=== PATIENT | male | born 1995 | race Two or more races ===

== ENCOUNTER → 2017-07-09 | Outpatient (CLI) | payer MEDICAID ==
--- NOTE | 2017-07-09 17:16 | REP ---
Clinical: Protruding sternal wires. Technique: PA and lateral. Comparison: 12/29/2015. Findings: The patient is again noted to be status post sternotomy and the sternal wires, sternum and overlying soft tissues appear relatively stable as compared to prior examination. No obvious subcutaneous emphysema overlying the sternum area of sternotomy is appreciated. The mediastinum and cardiac silhouette are normal/stable. Lung kunz without focal consolidation, effusion, or pneumothorax. Impression: 1. Stable appearance to the sternotomy, sternum and overlying soft tissues. No evidence for subcutaneous emphysema. 2. No acute cardiopulmonary process. Signed by Grady Chou MD 07/09/2017 05:08 P
== END ==
LOC: M WUC 16:54
PROVIDERS: ATTEND Physician Assistant Medical
DX: T81.89XA Other complications of procedures, not elsewhere classified, initial encounter (principal); Y83.8 Other surgical procedures as the cause of abnormal reaction of the patient, or of later complication, without mention of misadventure at the time of the procedure

== ENCOUNTER 2018-04-08 08:19 | Emergency (ER) | payer MEDICAID ==
[2018-04-08] MEDS: ATENOLOL 25 MG TAB PO ×2 (08:56→11:11)
[2018-04-08] MEDS: ADENOSINE 6MG/2ML INJECTION (J0153) IV (09:10)
[2018-04-08 09:21] LABS: HEMOGLOBIN 19.7 g/dl (13.5-17.5); MEAN CORPUSCULAR HEMOGLOBIN 31.5 pg (27.0-33.0); MEAN CORPUSCULAR VOLUME 92.7 fl (80.0-96.0); PLATELET COUNT, AUTOMATED 275 10^3/uL (150-450); RED BLOOD COUNT 6.26 10^6/uL (4.30-6.10); WHITE BLOOD COUNT 10.4 10^3/uL (4.0-10.0)
[2018-04-08 09:36] LABS: ANION GAP 17 MEQ/L (8-16); BLOOD UREA NITROGEN 30 MG/DL (7-18); CALCIUM LEVEL 9.8 MG/DL (8.5-10.1); CARBON DIOXIDE LEVEL 18 MEQ/L (21-32); CHLORIDE LEVEL 107 MEQ/L (98-107); CREATININE FOR GFR 1.46 MG/DL (0.70-1.30); GLOMERULAR FILTRATION RATE > 60.0 (>60); GLUCOSE, FASTING 111 MG/DL (70-100); POTASSIUM SERUM 4.9 MEQ/L (3.5-5.1); SODIUM LEVEL 142 MEQ/L (136-145)
[2018-04-08 10:14] LABS: MAGNESIUM LEVEL 2.2 MG/DL (1.8-2.4)
[2018-04-08 10:19] LABS: CK-MB VALUE MASS < 1.0 NG/ML (<3.6); CPK CREATINE PHOSPHOKINASE 148 U/L (39-308); MB/CK RELATIVE INDEX 0.67 (< OR =4); TROPONIN I 0.06 NG/ML (< 0.10)
== END 2018-04-08 11:54 | disposition home or self-care (01) ==
LOC: M ED 08:19
DX: I47.1 Supraventricular tachycardia (principal); F84.0 Autistic disorder; Q89.01 Asplenia (congenital); I45.6 Pre-excitation syndrome; Z91.048 Other nonmedicinal substance allergy status; Z79.899 Other long term (current) drug therapy; Z79.82 Long term (current) use of aspirin
CPT/HCPCS: J0153

== ENCOUNTER → 2018-12-15 | Outpatient (REF) | payer MEDICAID ==
[~2018-12-15] MED LIST: ASPI81TA21 PO; ASPI81TA85 PO; ATEN25TA PO; VITA400D PO; VITA400T15 PO
[2018-12-15 12:49] LABS: APPEARANCE, URINE CLEAR (CLEAR); BACTERIA, URINE AUTO NEGATIVE (NEGATIVE); BILIRUBIN, URINE AUTO NEGATIVE (NEGATIVE); BLOOD, URINE BLOOD NEGATIVE (NEGATIVE); COLOR, URINE YELLOW (YELLOW); GLUCOSE, URINE (UA) AUTO NEGATIVE (NEGATIVE); KETONE, URINE AUTO NEGATIVE (NEGATIVE); LEUKOCYTE ESTERASE, URINE AUTO NEGATIVE (NEGATIVE); NITRITE, URINE AUTO NEGATIVE (NEGATIVE); PROTEIN, URINE AUTO NEGATIVE (NEGATIVE); RBC, URINE AUTO 3 /HPF (0-3); SPECIFIC GRAVITY URINE AUTO 1.018 (1.002-1.035); SQUAMOUS EPITHELIAL CELL UR AU 0 /HPF (0-6); UROBILINOGEN, URINE AUTO 0.2 mg/dL (0.0-2.0); WBC, URINE AUTO 0 /HPF (0-3)
== END ==
LOC: M SFHCPLAZ 11:53
PROVIDERS: ATTEND Family Medicine
DX: R82.998 Other abnormal findings in urine (principal)

== ENCOUNTER 2019-01-11 10:46 | Emergency (ER) | payer MEDICAID ==
[~2019-01-11] VITALS: Ht 170.2 cm; Wt 62.5 kg
[2019-01-11] MEDS ORDERED: NS 1,000 ML IV ONE (11:15)
[2019-01-11] MEDS: METOPROLOL 5 MG/5 ML VIAL IV SCH ×3 (11:18→11:47)
--- NOTE | 2019-01-11 11:34 | REP ---
Clinical: Chest pain. Comparison: 07/09/2017. Findings: Cardiomegaly and evidence for prior sternotomy. No focal consolidation. No effusion. No pneumothorax. Impression: No focal consolidation. No effusion. Electronically Signed by Grady Chou MD 01/11/2019 11:26 A
[2019-01-11 11:47] VITALS: BP 104/77
[2019-01-11] MEDS ORDERED: ADENOSINE 6MG/2ML INJECTION (J0153) IV STA ×2 (11:54→12:19)
[2019-01-11 11:56] LABS: BASO # 0.1 10^3/uL (0.0-0.2); BASO % 0.7 % (0.0-1.0); EOS # 0.5 10^3/uL (0.0-0.50); EOS % 3.6 % (0.0-3.0); HEMATOCRIT 60.3 % (42.0-52.0); LYMPH # 2.7 10^3/uL (1.5-6.5); LYMPH % 20.2 % (24.0-44.0); MEAN CORPUSCULAR HEMOGLOBIN 32.6 pg (27.0-33.0); MEAN CORPUSCULAR HGB CONC 33.7 g/dl (32.0-36.5); MEAN CORPUSCULAR VOLUME 96.9 fl (80.0-96.0); MONO % 7.7 % (0.0-5.0); NEUTROPHILS % 67.4 % (36.0-66.0); PLATELET COUNT, AUTOMATED 196 10^3/uL (150-450); RED BLOOD COUNT 6.22 10^6/uL (4.30-6.10); WHITE BLOOD COUNT 13.3 10^3/uL (4.0-10.0)
[2019-01-11 12:01] LABS: HEMOGLOBIN 20.3 g/dl (13.5-17.5)
[2019-01-11 12:27] LABS: BLOOD UREA NITROGEN 15 MG/DL (7-18); CALCIUM LEVEL 9.4 MG/DL (8.5-10.1); CARBON DIOXIDE LEVEL 15 MEQ/L (21-32); CHLORIDE LEVEL 112 MEQ/L (98-107); CREATININE FOR GFR 1.03 MG/DL (0.70-1.30); FREE T4 1.17 NG/DL (0.76-1.46); GLOMERULAR FILTRATION RATE > 60.0 (>60); GLUCOSE, FASTING 93 MG/DL (70-100); MAGNESIUM LEVEL 1.8 MG/DL (1.8-2.4); POTASSIUM SERUM 5.2 MEQ/L (3.5-5.1); SODIUM LEVEL 141 MEQ/L (136-145)
[2019-01-11 14:00] VITALS: BP 107/70
--- NOTE | 2019-01-11 21:04 | ECGEPIP ---
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
--- NOTE | 2019-01-11 21:06 | ECGEPIP ---
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
== END 2019-01-11 14:11 | disposition home or self-care (01) ==
LOC: M ED 10:46
DX: I47.1 Supraventricular tachycardia (principal); I51.7 Cardiomegaly; F84.0 Autistic disorder; Z79.82 Long term (current) use of aspirin; Z79.899 Other long term (current) drug therapy; Z98.890 Other specified postprocedural states; Z91.02 Food additives allergy status
CPT/HCPCS: 36415; 71045; 80047; 80048; 82668; 83615; 83735; 84439; 84443; 85025; 93005; 93041; 94760; 96374; 96375; 99285; J0153

== ENCOUNTER → 2019-01-15 | Outpatient (REF) | payer MEDICAID ==
[2019-01-15 11:59] LABS: BASO # 0.1 10^3/uL (0.0-0.2); BASO % 0.7 % (0.0-1.0); EOS # 0.6 10^3/uL (0.0-0.50); EOS % 6.1 % (0.0-3.0); LYMPH % 21.1 % (24.0-44.0); MEAN CORPUSCULAR HEMOGLOBIN 32.6 pg (27.0-33.0); MEAN CORPUSCULAR HGB CONC 34.2 g/dl (32.0-36.5); MEAN CORPUSCULAR VOLUME 95.2 fl (80.0-96.0); NEUTROPHILS # 5.6 10^3/uL (1.8-7.7); NEUTROPHILS % 60.9 % (36.0-66.0); PLATELET COUNT, AUTOMATED 291 10^3/uL (150-450); RED BLOOD COUNT 5.46 10^6/uL (4.30-6.10); WHITE BLOOD COUNT 9.2 10^3/uL (4.0-10.0)
[2019-01-15 12:06] LABS: HEMOGLOBIN 17.8 g/dl (13.5-17.5)
[2019-01-15 12:07] LABS: ALBUMIN 4.4 GM/DL (3.2-5.2); ALT/SGPT 38 U/L (12-78); BILIRUBIN,TOTAL 0.8 MG/DL (0.2-1.0); BLOOD UREA NITROGEN 19 MG/DL (7-18); CALCIUM LEVEL 10.2 MG/DL (8.5-10.1); CARBON DIOXIDE LEVEL 26 MEQ/L (21-32); CHLORIDE LEVEL 106 MEQ/L (98-107); CREATININE FOR GFR 0.84 MG/DL (0.70-1.30); GLOMERULAR FILTRATION RATE > 60.0 (>60); GLUCOSE, FASTING 73 MG/DL (70-100); POTASSIUM SERUM 4.3 MEQ/L (3.5-5.1); SODIUM LEVEL 140 MEQ/L (136-145); TOTAL PROTEIN 7.7 GM/DL (6.4-8.2)
== END ==
LOC: M SFHCPLAZ 10:05
PROVIDERS: ATTEND Family Medicine
DX: D75.1 Secondary polycythemia (principal); E87.5 Hyperkalemia

== ENCOUNTER → 2019-01-18 | Outpatient (CLI) | payer MEDICAID ==
[~2019-01-18] MED LIST changes: +GASTROGRAFIN SOLUTION 30ML (Q9963) As Ordered ONE; +ISOVUE-370 76% 100ML VIAL (Q9967) As Ordered ONE
--- NOTE | 2019-01-18 13:10 | REP ---
REASON: Patient on erythropoietin. COMPARISON: None. CONTRAST: 100 mL Isovue 370. 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 There is hepatomegaly. There is aspleenia. In the liver there are two focally enhancing areas, one on the right measuring 1.3 cm and the other on the left measuring 1.4 cm. The pancreas is within normal limits. The gallbladder is within normal limits. The stomach is right sided. The pancreas is right sided. The IVC is left sided. The abdominal aorta and paraaortic regions show no abnormalities. There is no free fluid or free air in the abdomen. The bowel loops and their mesenteries are within normal limits. There is no evidence of adrenal gland mass. There is no evidence of an intraabdominal mass or adenopathy. CT PELVIS: The bowel loops and their mesenteries are within normal limits. There is no mass or adenopathy. There is no free fluid or free air. Bone window technique through the examination shows the osseous structures to be within normal limits. The lung bases are within normal limits. IMPRESSION: 1. 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 2. Hepatomegaly. 3. Focal areas of hepatic enhancement of uncertain etiology. Possible hepatic adenomas. Followup is recommended. Consider pre and post gadolinium enhanced hepatic MRI. Prior ultrasound examination of the abdomen 09/06/2015 did not show any hepatic lesions. 4. No evidence of an adrenal gland mass or mass involving the organ of Zuckerkandl. No evidence of adenopathy. 5. Other findings as described above. Electronically Signed by Henri Dempsey DO 01/18/2019 01:58 P
== END ==
LOC: M RAD 10:39
PROVIDERS: ATTEND Family Medicine
DX: D75.1 Secondary polycythemia (principal); R16.0 Hepatomegaly, not elsewhere classified; Q89.3 Situs inversus
CPT/HCPCS: 74177; Q9963; Q9967

== ENCOUNTER → 2019-02-04 | Outpatient (CLI) | payer MEDICAID ==
[~2019-02-04] MED LIST changes: -GASTROGRAFIN SOLUTION 30ML (Q9963) As Ordered ONE; -ISOVUE-370 76% 100ML VIAL (Q9967) As Ordered ONE
--- NOTE | 2019-02-04 11:46 | REP ---
RIGHT UPPER QUADRANT SONOGRAPHY: HISTORY: Liver lesion. COMPARISON: CT study January 18, 2019. Comparison chest x-rays are reviewed, the most recent which is from January 11, 2019. There is a prior abdominal ultrasound from September 06, 2015. FINDINGS: Review of this patient's chest and abdominal prior imaging shows that the patient has heterotaxia syndrome (aka situs ambiguous/asplenia) with a horizontally-distributed liver throughout the upper abdomen and no observable spleen. Median sternotomy wires are seen. There is a suggestion of both ventricular and atrial septal defects implying congenital heart disease. The vena cava is on the left, and the stomach and pancreas are in the right upper abdomen. The gallbladder is midline to the right. The CT study showed two hypervascular liver nodules. Scanning through the upper abdomen demonstrates a horizontally-oriented liver, overall subjectively somewhat prominent in size. The gallbladder is normal in size with a smooth thin wall and no stone or polyp. Common bile duct is measured at 0.5 cm in diameter. There are two hyperechoic liver nodules. These measure 0.8 x 0.8 x 0.7 cm and 0.7 x 0.6 x 0.8 cm on the right and left side of the liver, respectively. These correspond to the CT findings and are compatible with hemangiomas. There is no evidence of ascites. No right renal abnormality is observed. The pancreas not visualized. The right kidney measures 10.0 x 5.7 x 4.8 cm. IMPRESSION: Heterotaxia/situs ambiguous/asplenia syndrome findings. Hyperechoic nodules, one in each side of the horizontally-distributed liver, compatible with benign hemangiomas. Electronically Signed by iVnicius Ham MD 02/04/2019 02:17 P
== END ==
LOC: M RAD 09:09
PROVIDERS: ATTEND Family Medicine
DX: K76.89 Other specified diseases of liver (principal)

== ENCOUNTER → 2019-03-17 | Outpatient (REF) | payer MEDICAID ==
[2019-03-17 13:21] LABS: HEMATOCRIT 52.8 % (42.0-52.0); MEAN CORPUSCULAR HEMOGLOBIN 31.5 pg (27.0-33.0); MEAN CORPUSCULAR HGB CONC 34.1 g/dl (32.0-36.5); MEAN CORPUSCULAR VOLUME 92.5 fl (80.0-96.0); PLATELET COUNT, AUTOMATED 300 10^3/uL (150-450); RED BLOOD COUNT 5.71 10^6/uL (4.30-6.10); WHITE BLOOD COUNT 7.4 10^3/uL (4.0-10.0)
[2019-03-17 13:26] LABS: ALBUMIN 4.5 GM/DL (3.2-5.2); ALT/SGPT 43 U/L (12-78); BILIRUBIN,TOTAL 1.9 MG/DL (0.2-1.0); BLOOD UREA NITROGEN 16 MG/DL (7-18); CALCIUM LEVEL 10.4 MG/DL (8.5-10.1); CARBON DIOXIDE LEVEL 27 MEQ/L (21-32); CHLORIDE LEVEL 107 MEQ/L (98-107); GLOMERULAR FILTRATION RATE > 60.0 (>60); GLUCOSE, FASTING 78 MG/DL (70-100); POTASSIUM SERUM 3.9 MEQ/L (3.5-5.1); SODIUM LEVEL 141 MEQ/L (136-145); TOTAL PROTEIN 8.2 GM/DL (6.4-8.2)
[2019-03-17 13:27] LABS: TOTAL 25(OH) VITAMIN D 32.8 NG/ML (30.0-100.0)
== END ==
LOC: M SFHCPLAZ 11:09
PROVIDERS: ATTEND Family Medicine
DX: D58.2 Other hemoglobinopathies (principal); E55.9 Vitamin D deficiency, unspecified

== ENCOUNTER → 2019-04-13 | Outpatient (CLI) | payer MEDICAID ==
[2019-04-13 20:21] LABS: BLOOD UREA NITROGEN 19 MG/DL (7-18); CALCIUM LEVEL 9.6 MG/DL (8.5-10.1); CARBON DIOXIDE LEVEL 29 MEQ/L (21-32); CHLORIDE LEVEL 104 MEQ/L (98-107); GLOMERULAR FILTRATION RATE > 60.0 (>60); GLUCOSE, FASTING 79 MG/DL (70-100); POTASSIUM SERUM 4.2 MEQ/L (3.5-5.1); SODIUM LEVEL 142 MEQ/L (136-145)
[2019-04-14 09:31] LABS: PTH INTACT 29.2 PG/ML (18.5-88.0)
== END ==
LOC: M WUC 15:42
PROVIDERS: ATTEND Family Medicine
DX: E83.52 Hypercalcemia (principal)

== ENCOUNTER 2019-06-05 10:23 | Observation (INO) | payer MEDICAID ==
[~2019-06-05] VITALS: Ht 165.1 cm; Wt 61.2 kg
[~2019-06-05 10:23] MED LIST changes: +CETIRIZINE (ZyrTEC) 10 MG TAB PO SCH
[2019-06-05] MEDS ORDERED: ASPIRIN 81 MG CHEW TABLET PO ONE (10:45)
[2019-06-05] MEDS ORDERED: ALL10TAB2 PO (10:49)
[2019-06-05] MEDS ORDERED: ADENOSINE 6MG/2ML INJECTION (J0153) As Ordered ONE (10:59)
[2019-06-05] MEDS ORDERED: ADENOSINE 6MG/2ML INJECTION (J0153) IV STA (11:02)
[2019-06-05 11:03] LABS: BASO # 0.1 10^3/uL (0.0-0.2); BASO % 0.5 % (0.0-1.0); EOS % 0.1 % (0.0-3.0); LYMPH # 2.5 10^3/uL (1.5-5.0); LYMPH % 22.1 % (24.0-44.0); MEAN CORPUSCULAR HEMOGLOBIN 31.7 pg (27.0-33.0); MEAN CORPUSCULAR HGB CONC 34.3 g/dl (32.0-36.5); MEAN CORPUSCULAR VOLUME 92.6 fl (80.0-96.0); MONO # 1.6 10^3/uL (0.0-0.8); MONO % 14.4 % (0.0-5.0); NEUTROPHILS # 6.9 10^3/uL (1.5-8.5); NEUTROPHILS % 62.5 % (36.0-66.0); PLATELET COUNT, AUTOMATED 271 10^3/uL (150-450); RED BLOOD COUNT 6.24 10^6/uL (4.30-6.10); WHITE BLOOD COUNT 11.1 10^3/uL (4.0-10.0)
[2019-06-05] MEDS ORDERED: ATENOLOL 25 MG TAB As Ordered ONE (11:05)
[2019-06-05 11:09] VITALS: BP 109/84
[2019-06-05] MEDS ORDERED: ATENOLOL 50 MG TAB PO ONE (11:15)
[2019-06-05 11:17] LABS: INR 1.51; PARTIAL THROMBOPLASTIN TIME 30.4 SECONDS (25.0-38.4); PROTHROMBIN TIME 17.9 SECONDS (11.8-14.0)
[2019-06-05 11:22] LABS: HEMATOCRIT 57.8 % (42.0-52.0); HEMOGLOBIN 19.8 g/dl (13.5-17.5)
[2019-06-05 11:29] LABS: ALBUMIN 4.4 GM/DL (3.2-5.2); ALT/SGPT 47 U/L (12-78); BILIRUBIN,DIRECT 0.6 MG/DL (0.0-0.2); BILIRUBIN,TOTAL 2.6 MG/DL (0.2-1.0); BLOOD UREA NITROGEN 24 MG/DL (7-18); CALCIUM LEVEL 10.1 MG/DL (8.5-10.1); CARBON DIOXIDE LEVEL 23 MEQ/L (21-32); CHLORIDE LEVEL 107 MEQ/L (98-107); CK-MB VALUE MASS 1.1 NG/ML (<3.6); CPK CREATINE PHOSPHOKINASE 115 U/L (39-308); CREATININE FOR GFR 1.53 MG/DL (0.70-1.30); FREE T4 1.58 NG/DL (0.76-1.46); GLOMERULAR FILTRATION RATE > 60.0 (>60); GLUCOSE, FASTING 127 MG/DL (70-100); MAGNESIUM LEVEL 1.8 MG/DL (1.8-2.4); MB/CK RELATIVE INDEX 0.96 (< OR =4); POTASSIUM SERUM 4.9 MEQ/L (3.5-5.1); SODIUM LEVEL 140 MEQ/L (136-145); TOTAL PROTEIN 8.1 GM/DL (6.4-8.2); TROPONIN I 0.05 NG/ML (< 0.10)
--- NOTE | 2019-06-05 11:32 | REP ---
Portable chest x-ray: Single view. History: Chest pain. Comparison chest x-ray: January 11, 2019. Findings: The patient is status post prior median sternotomy. Mild cardiac enlargement is again noted. The aortic knob and left heart border are left-sided. The gastric air bubble appears to be right-sided consistent with situs ambiguous. No infiltrate is seen. Pleural angles are sharp. No significant bony abnormality is seen. EKG monitoring electrodes are noted. Impression: Cardiomegaly. Situs ambiguous. No acute infiltrate. Electronically Signed by Vinicius Ham MD 06/05/2019 11:24 A
[2019-06-05] MEDS ORDERED: ATEN50TA2 PO (12:33)
[2019-06-05] MEDS ORDERED: ATEN25TA PO (12:33)
[2019-06-05] MEDS ORDERED: ACETAMINOPHEN TAB 650MG DOSE (2X325MG) PO PRN (13:30)
[2019-06-05 14:26] VITALS: BP 116/80
--- NOTE | 2019-06-05 19:23 | ECGEPIP ---
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
[2019-06-05] MEDS ORDERED: ATENOLOL 25 MG TAB PO SCH (21:00)
[2019-06-06] MEDS ORDERED: ATENOLOL 50 MG TAB PO SCH (09:00)
[2019-06-06] MEDS ORDERED: ASPIRIN 81 MG ENTERIC TAB PO SCH (09:00)
[2019-06-06] MEDS ORDERED: VITAMIN D (CHOLECALCIFEROL) 400 INTERNATIONAL UNITS TAB PO SCH (09:00)
== END 2019-06-05 14:30 | disposition short-term general hospital (02) ==
LOC: M ED 10:23 → EDBD 10:23 → M ED INP 10:24 → UNDOADMOB 12:23 → M ED INP 12:23
PROVIDERS: ADMIT Internal Medicine; ATTEND Internal Medicine
DX: I47.1 Supraventricular tachycardia (principal); R94.31 Abnormal electrocardiogram [ECG] [EKG]; F84.0 Autistic disorder; I45.6 Pre-excitation syndrome; Z79.82 Long term (current) use of aspirin; Z79.899 Other long term (current) drug therapy; Z91.02 Food additives allergy status
CPT/HCPCS: 71045; 80048; 80076; 82550; 82553; 83735; 84100; 84439; 84443; 85025; 85610; 85730; 93005; 93041; 94760; 96374; 99285; J0153

== ENCOUNTER → 2019-09-20 | Outpatient (REF) | payer MEDICAID ==
[~2019-09-20] MED LIST changes: +ALL10TAB2 PO; +ATEN50TA2 PO; -CETIRIZINE (ZyrTEC) 10 MG TAB PO SCH; +SOTA80TA2 PO
[2019-09-20 12:23] LABS: HEMATOCRIT 54.2 % (42.0-52.0); HEMOGLOBIN 17.7 g/dl (13.5-17.5); MEAN CORPUSCULAR HEMOGLOBIN 30.7 pg (27.0-33.0); MEAN CORPUSCULAR HGB CONC 32.7 g/dl (32.0-36.5); MEAN CORPUSCULAR VOLUME 94.1 fl (80.0-96.0); PLATELET COUNT, AUTOMATED 380 10^3/uL (150-450); RED BLOOD COUNT 5.76 10^6/uL (4.30-6.10); WHITE BLOOD COUNT 7.9 10^3/uL (4.0-10.0)
== END ==
LOC: M SFHCPLAZ 09:48
PROVIDERS: ATTEND Family Medicine
DX: D75.1 Secondary polycythemia (principal)

== ENCOUNTER 2019-12-20 11:28 | Emergency (ER) | payer MEDICAID ==
[~2019-12-20] VITALS: Ht 170.2 cm; Wt 72.3 kg
[~2019-12-20 11:28] MED LIST changes: -ASPI81TA85 PO; +ASPI81TA86 PO
[2019-12-20] MEDS ORDERED: ADENOSINE 6MG/2ML INJECTION (J0153) IV STA (12:14)
[2019-12-20] MEDS ORDERED: METOPROLOL SUCC (TopROL XL) 50MG **XL** TAB PO ONE (12:15)
[2019-12-20 12:17] LABS: BASO # 0.1 10^3/uL (0.0-0.2); BASO % 0.6 % (0.0-1.0); EOS # 0.4 10^3/uL (0.0-0.5); EOS % 3.8 % (0.0-3.0); HEMATOCRIT 58.8 % (42.0-52.0); HEMOGLOBIN 19.4 g/dl (13.5-17.5); LYMPH # 2.2 10^3/uL (1.5-5.0); LYMPH % 22.6 % (24.0-44.0); MEAN CORPUSCULAR HEMOGLOBIN 30.4 pg (27.0-33.0); MEAN CORPUSCULAR VOLUME 92.2 fl (80.0-96.0); MONO # 0.9 10^3/uL (0.0-0.8); MONO % 8.9 % (0.0-5.0); NEUTROPHILS # 6.1 10^3/uL (1.5-8.5); NEUTROPHILS % 63.4 % (36.0-66.0); PLATELET COUNT, AUTOMATED 335 10^3/uL (150-450); RED BLOOD COUNT 6.38 10^6/uL (4.30-6.10); WHITE BLOOD COUNT 9.7 10^3/uL (4.0-10.0)
[2019-12-20] MEDS ORDERED: ASPIRIN 325 MG TAB PO ONE (12:30)
[2019-12-20] MEDS ORDERED: NS 1,000 ML IV ONE (12:30)
[2019-12-20 12:37] VITALS: BP 114/76
[2019-12-20 12:49] LABS: BLOOD UREA NITROGEN 23 MG/DL (7-18); CALCIUM LEVEL 10.2 MG/DL (8.5-10.1); CARBON DIOXIDE LEVEL 23 MEQ/L (21-32); CHLORIDE LEVEL 107 MEQ/L (98-107); CK-MB VALUE MASS 1.7 NG/ML (<3.6); CPK CREATINE PHOSPHOKINASE 174 U/L (39-308); CREATININE FOR GFR 0.98 MG/DL (0.70-1.30); GLOMERULAR FILTRATION RATE > 60.0 (>60); GLUCOSE, FASTING 102 MG/DL (70-100); MB/CK RELATIVE INDEX 0.98 (< OR =4); POTASSIUM SERUM 5.1 MEQ/L (3.5-5.1); SODIUM LEVEL 138 MEQ/L (136-145); TROPONIN I < 0.02 NG/ML (< 0.10)
--- NOTE | 2019-12-20 13:28 | REP ---
REASON FOR EXAM: Chest pain. COMPARISON: Multiple, the latest 06/05/2019. The technique utilized in obtaining the radiograph has magnified the cardiac silhouette and accentuated the interstitial markings. Once again, the is cardiomegaly accentuated by technique. Note is again made of previous median sternotomy, status quo. Once again, the gastric air density is right sided. There is no change in the osseous structures. There is no new abnormal lung opacity. IMPRESSION: Stable findings as described above. There is no acute cardiopulmonary disease. There is cardiomegaly and evidence of situs ambiguous, as described above. Electronically Signed by Henri Dempsey DO 12/20/2019 01:34 P
[2019-12-20 13:30] VITALS: BP 122/82
--- NOTE | 2019-12-20 18:39 | ECGEPIP ---
[facility] - ED Test Date: 2019-12-20 Pat Name: JOANNE RUSSELL Department: Room: - Gender: Male Despatching And Receiving Clerk: cristian : 1995 Requested By: Oriana Jane Order Number: [id number] Reading MD: Oriana Jane Measurements Intervals [place] Rate: 171 P: ND: 0 QRS: 243 QRSD: 90 T: 75 QT: 259 QTc: 438 Interpretive Statements SUPRAVENTRICULAR TACHYCARDIA VS ATRIAL FLUTTER PATTERN CONSISTENT WITH PULMONARY DISEASE RIGHT VENTRICULAR HYPERTROPHY AND ST-T CHANGE ST DEPRESSION, CONSIDER SUBENDOCARDIAL INJURY Electronically Signed on 12-20-2019 18:39:23 EDT by Oriana Jane
[2019-12-20] MEDS ORDERED: SOTA120T31 PO (22:52)
== END 2019-12-20 14:08 | disposition home or self-care (01) ==
LOC: M ED 11:28
DX: I47.2 Ventricular tachycardia (principal); R07.89 Other chest pain; I10 Essential (primary) hypertension; F84.0 Autistic disorder; Z79.899 Other long term (current) drug therapy; Z79.82 Long term (current) use of aspirin; Q89.01 Asplenia (congenital); Q24.8 Other specified congenital malformations of heart
CPT/HCPCS: 71045; 80048; 82550; 82553; 83735; 85025; 93005; 93041; 94760; 96361; 96374; 99285; J0153

== ENCOUNTER 2019-12-20 19:56 | Emergency (ER) | payer MEDICAID ==
[~2019-12-20] VITALS: Ht 170.2 cm; Wt 73.0 kg
[~2019-12-20 19:56] MED LIST changes: +ASPI81TA85 PO; -ASPI81TA86 PO
[2019-12-20] MEDS ORDERED: ADENOSINE 6MG/2ML INJECTION (J0153) IV STA ×3 (20:14→21:30)
[2019-12-20] MEDS ORDERED: NS 1,000 ML IV ONE (20:15)
[2019-12-20] MEDS ORDERED: SOTALOL 40MG PER 1/2 TABLET PO ONE (21:00)
[2019-12-20 21:11] LABS: MB/CK RELATIVE INDEX 1.22 (< OR =4); TROPONIN I 0.02 NG/ML (< 0.10)
[2019-12-20] MEDS ORDERED: SOTALOL HCL 80 MG TAB PO ONE (21:15)
[2019-12-20 21:18] VITALS: BP 113/75
[2019-12-20] MEDS ORDERED: SOTA120T31 PO (22:52)
[2019-12-20 23:00] VITALS: BP 117/61
--- NOTE | 2019-12-21 10:36 | ECGEPIP ---
[facility] - Peds Test Date: 2019-12-20 Pat Name: JOANNE RUSSELL Department: Room: - Gender: Male Lining Printer: aletha : 1995 Requested By: RHIANNA AWAN Order Number: [id number] Reading MD: Ashok Gonzales Measurements Intervals [place] Rate: 169 P: [place]: 0 QRS: QRSD: 88 T: 93 QT: 268 QTc: 450 Interpretive Statements SUPRAVENTRICULAR TACHYCARDIA WITH NARROW QRS COMPLEX AND RETROGRADE P WAVES WITH SHORT R-P INTERVAL NORTHWEST FRONTAL PLANE QRS AXIS RIGHT VENTRICULAR ENLARGEMENT OR HYPERTROPHY UPPER NORMAL QT Electronically Signed on 12-21-2019 10:35:57 EDT by Ashok Gonzales
--- NOTE | 2019-12-21 10:39 | ECGEPIP ---
[facility] Test Date: 2019-12-20 Pat Name: JOANNE RUSSELL Department: Room: - Gender: Male System Configuration Specialist: aletha : 1995 Requested By: RHIANNA AWAN Order Number: [id number] Reading MD: Ashok Gonzales Measurements Intervals [place] Rate: 103 P: 15 [place]: 136 QRS: 118 QRSD: 96 T: -42 QT: 334 QTc: 438 Interpretive Statements SINUS TACHYCARDIA - MILD RIGHT AXIS DEVIATION PAUCITY OF ANTERIOR VOLTAGES WITH SOMEWHAT MONOTONOUS PRECORDIAL LEAD PATTERN ST DEPRESSION WITH T WAVE CHANGES INFERO-LATERAL LEADS Electronically Signed on 12-21-2019 10:39:19 EDT by Ashok Gonzales
== END 2019-12-20 23:14 | disposition home or self-care (01) ==
LOC: M ED 19:56
DX: I47.2 Ventricular tachycardia (principal); F41.9 Anxiety disorder, unspecified; Z95.1 Presence of aortocoronary bypass graft; Z91.02 Food additives allergy status; Z79.899 Other long term (current) drug therapy; Z79.82 Long term (current) use of aspirin; Q89.01 Asplenia (congenital); Q24.8 Other specified congenital malformations of heart
CPT/HCPCS: 82550; 82553; 93005; 93041; 94760; 96361; 96374; 96375; 99285; J0153

== ENCOUNTER 2022-04-03 20:57 | Emergency (ER) | payer MEDICAID ==
[~2022-04-03 20:57] MED LIST changes: -ASPI81TA85 PO; +ASPI81TA86 PO; +SOTA120T31 PO
[2022-04-03 21:05] VITALS: BP_SYST 80
[2022-04-03] MEDS ORDERED: DEXTROSE 50% 50 ML VIAL As Ordered ONE (21:08)
[2022-04-03] MEDS ORDERED: TENECTEPLASE 50 MG KIT (TNKase) (J3101 PER 1MG) As Ordered ONE (21:33)
[2022-04-03] MEDS ORDERED: TENECTEPLASE 50 MG KIT (TNKase) (J3101 PER 1MG) IV ONE (21:35)
[2022-04-03] MEDS ORDERED: EPINEPHrine INJ 1 MG/ML 1ML AMP As Ordered ONE (21:42)
[2022-04-03] MEDS ORDERED: EPINEPHrine 1MG/10ML SYRINGE 1.5IN As Ordered ONE (21:42)
[2022-04-03 21:46] LABS: BASO # 0.1 10^3/uL (0.0-0.2); BASO % 1.3 % (0.0-1.0); EOS # 0.1 10^3/uL (0.0-0.5); EOS % 1.3 % (0.0-3.0); HEMATOCRIT 60.7 % (42.0-52.0); LYMPH # 3.1 10^3/uL (1.5-5.0); LYMPH % 31.1 % (24.0-44.0); MEAN CORPUSCULAR HEMOGLOBIN 32.4 pg (27.0-33.0); MEAN CORPUSCULAR HGB CONC 26.4 g/dl (32.0-36.5); MONO # 0.9 10^3/uL (0.0-0.8); MONO % 9.4 % (2.0-8.0); NEUTROPHILS # 5.2 10^3/uL (1.5-8.5); NEUTROPHILS % 52.3 % (36.0-66.0); PLATELET COUNT, AUTOMATED 135 10^3/uL (150-450); RED BLOOD COUNT 4.94 10^6/uL (4.30-6.10)
[2022-04-03 21:57] LABS: MEAN CORPUSCULAR VOLUME 122.9 fl (80.0-96.0)
[2022-04-03 21:59] LABS: INR 2.84; PROTHROMBIN TIME 30.1 SECONDS (12.7-14.5)
[2022-04-03 22:00] LABS: PARTIAL THROMBOPLASTIN TIME 54.7 SECONDS (25.9-37.0)
[2022-04-03] MEDS ORDERED: DEXTROSE 50% 50 ML SYRINGE IV STA ×2 (22:23)
[2022-04-03] MEDS ORDERED: ETOMIDATE INJ 20MG/10ML VIAL IV STA (22:23)
[2022-04-03] MEDS ORDERED: SODIUM BICARBONATE 8.4% INJ 50 ML SYRINGE IV STA ×4 (22:23)
[2022-04-03] MEDS ORDERED: EPINEPHrine 1MG/10ML SYRINGE 1.5IN IV STA ×7 (22:23)
[2022-04-03] MEDS ORDERED: CALCIUM CHLORIDE 10% 1 GM in D5W 100 ML IV ONE (22:25)
[2022-04-03 22:31] LABS: ANISOCYTOSIS 1+
[2022-04-03 22:32] LABS: PLATELET ESTIMATE DECREASED (NORMAL)
[2022-04-03 22:33] LABS: CRENATED RBC 1+; POIKILOCYTOSIS 1+
[2022-04-03] MEDS: ROCURONIUM BROMIDE 50 MG/5 ML VIAL IV SCH ×2 (22:45→22:51)
[2022-04-03 22:46] LABS: ALBUMIN 2.6 GM/DL (3.2-5.2); BILIRUBIN,DIRECT 0.7 MG/DL (0.0-0.2); CREATININE FOR GFR 2.36 MG/DL (0.70-1.30); FREE T4 1.28 NG/DL (0.76-1.46); POTASSIUM SERUM 5.4 MEQ/L (3.5-5.1); THYROID STIMULATING HORMONE 6.44 uIU/ML (0.358-3.740); TOTAL PROTEIN 6.2 GM/DL (6.4-8.2)
[2022-04-03 22:49] LABS: RSV AMPLIFICATION NEGATIVE (NEGATIVE)
[2022-04-03] MEDS ORDERED: MAG SULF 1GM/100ML (MAG RUN) 1 GM in IV 1 EA IV ONE (22:55)
[2022-04-03 23:02] LABS: CK-MB VALUE MASS < 1.0 NG/ML (<3.6); CPK CREATINE PHOSPHOKINASE 95 U/L (39-308); MB/CK RELATIVE INDEX 1.05 (< OR =4)
== END 2022-04-04 00:23 | disposition expired ==
LOC: M ED 20:57
DX: I21.3 ST elevation (STEMI) myocardial infarction of unspecified site (principal); R00.0 Tachycardia, unspecified; N17.9 Acute kidney failure, unspecified; E16.2 Hypoglycemia, unspecified; E87.2 Acidosis; E87.5 Hyperkalemia; Q24.9 Congenital malformation of heart, unspecified; Z79.82 Long term (current) use of aspirin; Z79.899 Other long term (current) drug therapy
CPT/HCPCS: 31500; 36600; 71045; 80047; 80048; 80076; 82550; 82553; 82803; 83690; 83880; 84439; 84443; 85025; 85610; 85730; 87631; 93041; 94760; 96365; 96375; 96376; 99291; J0171; J3101; J3475